=== PATIENT | male | born 1960 | race Caucasian/White ===

== ENCOUNTER 2019-08-11 08:00 | Outpatient (CLI) | payer BC, SELFPAY ==
--- NOTE | 2019-08-11 09:09 | CT_ITS ---
WS: [id number] CT scan of the pelvis. Additional two-dimensional coronal and sagittal reconstruction was performed. MIP images were also performed. 08/11/2019 Clinical Data: PELVIC PAIN Comparison: None. DLP: 828.[address] scans at [facility] use at least one of these dose optimization techniques: automat ed exposure control; mA and/or kV adjustment per patient size (includes targeted exams where dose is matched to clinical indication); or iterative reconstruction. Findings: The bladder and rectum are unremarkable. The prostate was enlarged. No inguinal hernia could be seen. There was a probable left renal cyst measuring 7.0 cm but renal ultrasound would be necessary for ev aluation. The bones show a 1.4 cm subluxation of L5 on S1 with obliteration of the L5-S1 disc space. There is bilateral hip narrowing without cyst, erosion or sclerosis. CT/CT pelvis w con* [id number] Impression: 1. Possible left renal cyst and recommend renal ultrasound for evaluation. 2. 1.4 cm subluxation of L5 on S1. 3. Bilateral hip narrowing. 4. No pelvic soft tissue abnormalities are seen.
[2019-08-11] MEDS: iohexol 300 mg/mL 100 mL Btl IV (09:24)
== END 2019-08-11 08:01 | disposition home or self-care (01) ==
LOC: RADWPI 08:06
PROVIDERS: Family Provider Family Medicine; PCP Family Medicine; Visit Provider Family Medicine
DX: R10.2 Pelvic and perineal pain (principal); M99.13 Subluxation complex (vertebral) of lumbar region
CPT/HCPCS: 72193; Q9967

== ENCOUNTER 2019-09-05 16:01 | Outpatient (CLI) | payer BC, SELFPAY ==
--- NOTE | 2019-09-05 | US_ITS ---
WS: [id number] RENAL ULTRASOUND REASON FOR EXAM: RENAL CYST TECHNIQUE: Grayscale and Doppler ultrasound examination of the kidneys. FINDINGS Right kidney: Right kidney measures 11.25 cm x 6.11 cm x 5.90 cm. No hydronephrosis no stones. Left kidney: Left kidney measures 11.6 to cm x 8.25 cm x 7.17 cm. cm. Large cyst is seen off the left kidney measured 8.74 x 7.05 x 6.16 cm. No hydronephrosis seen no stones. The urinary bladder was somewhat contracted but showed no definite pathology. US/US renal BI* [id number] IMPRESSION: Large left renal benign cysts.
== END 2019-09-05 16:02 | disposition home or self-care (01) ==
LOC: RAD 16:04
PROVIDERS: Family Provider Family Medicine; PCP Family Medicine; Visit Provider Family Medicine
DX: N28.1 Cyst of kidney, acquired (principal)
CPT/HCPCS: 76770

== ENCOUNTER 2020-07-11 11:32 | Outpatient (CLI) | payer BC, SELFPAY ==
--- NOTE | 2020-07-11 11:57 | XR_ITS ---
WS: [id number] Chest 2 views, 07/11/2020 Clinical Data: ATYPICAL CHEST PAIN Comparison: PA and lateral chest, 05/19/2012. Findings: No nodules, masses or effusions are seen. The heart is normal. The pulmonary vascularity is not increased. No pneumonia or pneumothorax is seen. XR/XR chest 2V* [id number] Impression: Negative chest.
== END 2020-07-11 11:33 | disposition home or self-care (01) ==
PROVIDERS: PCP Family Medicine; Visit Provider Family Medicine
DX: R07.89 Other chest pain (principal)
CPT/HCPCS: 71046

== ENCOUNTER 2021-03-25 07:25 | Outpatient (CLI) | payer BC, SELFPAY ==
[2021-03-25 07:52] VITALS: BMI 32.1
--- NOTE | 2021-03-25 07:54 | ECG_ITS ---
[facility] Test Date: 2021-03-25 Pat Name: Ace Ace Department: Room: Gender: Male Manager Rehab: Betty Mccarthy : 1960 Requested By: Obinna Isaacs Order Number: [id number] Obey MD: Alessia Shea M.D. Interpretive Statements No Symptoms Reported PROCEDURE: The baseline electrocardiogram showed normal sinus rhythm with normal ST-Ts. At the baseline, the patient's blood pressure was 132/103 mm Hg with a heart rate of 92. The patient exercised for 10 minutes on a standard Brendon protocol. Patient attained a maximum heart rate of 167 beats per minute( 103 % of the maximum predicted heart rate) with a blood pressure at the peak exercise of 192/93 mm Hg. The EKG at the peak exercise revealed no significant changes. Patient did not have any chest pain or any significant arrhythmis with the exercise Sestamibi was injected 1 minute prior to the peak exercise During the recovery phase, there were no new changes. Blood pressure at the end of the recovery phase was 130/93 mm Hg with a heart rate of 100 per minute. CONCLUSION: 1. No significant EKG changes with the treadmill exercise 2. No exercise-induced chest pain or cardiac arrhythmia. Hypertensive response to exercise 3. Good exercise tolerance, attained a maximum of 13.5 METs 4. Sestamibi/Sestamibi perfusion results pending; see separate report. Electronically Signed On 03-27-2021 0:47:48 CDT by Alessia Shea M.D. [email or web address]
--- NOTE | 2021-03-25 07:55 | NMCV_ITS ---
NM halima perf SPECT r/s* [id number] Ace Ace Age: 61 Gender: M : 1960 Exam Date: 03/25/2021 08:41 Ordering Phys: Obinna Mendez MD Technologist: THEE Sorensen Exam Location: [facility] Indications: CHEST PAIN STRESS TEST [facility] IMAGE PROTOCOL Rest/Stress 1 Exercise Day Radiopharmaceutical Dose (mCi) Administration Site Administered by Rest: Tc-99m 10.8 IV THEE Diez Sestamibi Stress:Tc-99m 32.8 IV THEE Diez Sestamibi Rest: 25-Mar-2021 60 Discovery 630 Stress: 25-Mar-2021 15 Discovery 630 Radiopharmaceutical was injected at 87 % maximum heart rate. Images obtained in supine and prone position. SPECT RESULTS Technical Quality: Excellent Raw Data Analysis: Normal Image Corrections: Patient motion artifact - motion correction applied Summed Stress Score: 0 Summed Rest Score: 3 Summed Difference Score: 0 PERFUSION FINDINGS Small area of slightly decreased tracer uptake was noted in the basal mid and apical inferior and mid inferoseptal regions. No significant reversibility was noted in these regions. FUNCTIONAL RESULTS (calculated via Gated SPECT) Stress Image LV EF (%): 74 Stress EDV (mL):86 TID: 0.88 Stress ESV (mL):22 FUNCTIONAL FINDINGS: Segmental wall motion analysis revealing no gross wall motion abnormalities. IMPRESSIONS 1. Myocardial perfusion imaging revealing small areas of slightly decreased persistent tracer uptake in the inferior and inferoseptal regions most likely represent attenuation artifact. 2. Normal LV ejection fraction of 74%. 3. LV wall motion analysis revealing no gross wall motion abnormalities. 4. Normal LV volume. No significant coronary ischemia, based on the above findings Dr Alessia Shea MD FACC (Electronically Signed) Final Date: 25 March 2021 17:25 S
[2021-03-25 09:38] VITALS: BP 166/93; PULSE 99
== END 2021-03-25 07:26 | disposition home or self-care (01) ==
LOC: RAD 07:27 → CDL 07:32
PROVIDERS: PCP Family Medicine; Visit Provider Family Medicine
DX: R07.9 Chest pain, unspecified (principal)
CPT/HCPCS: 78452; 93017; A9500

== ENCOUNTER 2021-10-30 15:12 | Outpatient (CLI) | payer BC, SELFPAY ==
[2021-10-30 16:52] LABS: Alanine Aminotransferase 35 U/L (0-41); Albumin Level 4.7 g/dL (3.5-5.2); Alkaline Phosphatase 67 IU/L (40-130); Anion Gap 15.3 (5-19); Aspartate Amino Transferase 26 U/L (0-40); Blood Urea Nitrogen 16 mg/dL (6-20); Calcium 8.7 mg/dL (8.5-10.5); Carbon Dioxide 27 mmol/L (22-29); Chloride 101 mmol/L (98-107); Chol HDL Ratio 4.19 mg/dL (1.0-5.00); Cholesterol 180 mg/dL (0-200); Glomerular Filtration Rate 76.5 mL/min (90-130); Glucose 91 mg/dL (65-115); HDL Cholesterol 43 mg/dL (60-100); LDL Cholesterol Calculated 109 mg/dL (50-129); LDL HDL Ratio 2.53 RATIO (0.00-3.22); Osmolality Calculated 289 mOsm/kg (285-295); Potassium 4.3 mmol/L (3.5-5.1); Sodium 139 mmol/L (136-145); Total Bilirubin 1.1 mg/dL (0.15-1.2); Total Protein 6.7 g/dL (6.6-8.7); Triglycerides 138 mg/dL (0-150)
== END 2021-10-30 15:13 | disposition home or self-care (01) ==
PROVIDERS: PCP Family Medicine; Visit Provider Family Medicine
DX: Z00.00 Encounter for general adult medical examination without abnormal findings (principal)
CPT/HCPCS: 80053; 80061; 84153

== ENCOUNTER → 2022-04-09 09:22 | Outpatient (BNVA) | payer BC, SELFPAY | PROVIDERS: PCP Family Medicine; Visit Provider Family Medicine | DX: R35.0 Frequency of micturition (principal); N40.0 Benign prostatic hyperplasia without lower urinary tract symptoms | CPT/HCPCS: 81000 ==

== ENCOUNTER → 2023-03-11 11:44 | Outpatient (BNVA) | payer BC, SELFPAY | PROVIDERS: PCP Family Medicine; Visit Provider Family Medicine | DX: N40.0 Benign prostatic hyperplasia without lower urinary tract symptoms (principal); Z00.00 Encounter for general adult medical examination without abnormal findings | CPT/HCPCS: 80053; 80061; 84153; 85025 ==

== ENCOUNTER → 2024-11-21 10:31 | Outpatient (BNVA) | payer OTHER, SELFPAY | PROVIDERS: PCP Family Medicine; Visit Provider Family Medicine | DX: Z00.00 Encounter for general adult medical examination without abnormal findings (principal); N40.0 Benign prostatic hyperplasia without lower urinary tract symptoms | CPT/HCPCS: 80053; 80061; 84153; 85025 ==

== ENCOUNTER → 2024-12-05 14:16 | Outpatient (BNVA) | payer OTHER, SELFPAY | PROVIDERS: PCP Family Medicine; Visit Provider Family Medicine | DX: L98.9 Disorder of the skin and subcutaneous tissue, unspecified (principal) | CPT/HCPCS: 88305 ==